=== PATIENT | female | born 1945 | race Caucasian/White ===

== ENCOUNTER 2024-06-02 20:33 | Inpatient (IN) | payer MEDICARE ==
[2024-06-02] MEDS ORDERED: Ondansetron ODT 4 MG TAB PO PRN (23:56)
[2024-06-02] MEDS ORDERED: Calcium Carbonate 500 MG ChewTAB PO PRN (23:56)
[2024-06-03 00:36] VITALS: BMI 26.4
[2024-06-03] MEDS: Dextrose 5%-Lactated Ringers 1,000 ML IV SCH (02:17)
[2024-06-03] MEDS: Enoxaparin 40 MG (0.4 mL) SYRINGE SC SCH ×2 (02:17→20:45)
[2024-06-03] MEDS ORDERED: Morphine 4 MG/ML VIAL SLOW IVP PRN (04:42)
[2024-06-03 05:00] LABS: #Basophils 0.03 10x3/uL (0.0-0.2); %Basophils 0.5 % (0.0-1.0); %Eosinophils 0.9 % (0.0-10.0); %Lymphocytes 6.5 % (21.0-51.0); %Monocytes 11.3 % (0.0-10.0); %Neutrophils 80.3 % (42.0-75.0); Hematocrit 28.2 % (36.0-47.0); Hemoglobin 9.5 g/dL (12.0-16.0); Mean Corpuscular HGB CONC 33.7 g/dL (32.0-36.0); Mean Corpuscular Hemoglobin 31.3 pg (27.0-31.0); Mean Corpuscular Volume 92.8 fL (78.0-98.0); Platelet Count 147 10x3/uL (130-400); Red Blood Cell (RBC) Count 3.04 mill/uL (4.20-5.40)
[2024-06-03 05:25] LABS: ALT (SGPT) 23 U/L (8-55); AST (SGOT) 74 U/L (5-34); Albumin 2.8 g/dL (3.4-4.8); Alkaline Phosphatase 565 U/L (40-110); BUN (Urea Nitrogen) 17 mg/dL (9.8-20.1); Bilirubin, Total 1.7 mg/dL (0.2-1.2); Calc. Creatinine Clearance 73 mL/min (70-130); Calcium 8.2 mg/dL (7.8-10.44); Carbon Dioxide 19 mmol/L (23-31); Estimated GFR 85; Glucose 93 mg/dL (83-110); Protein, Total 5.8 g/dL (5.8-8.1)
[2024-06-03 05:45] LABS: Anion Gap 18 mmol/L (10-20); Chloride 100 mmol/L (98-107); Potassium 3.6 mmol/L (3.5-5.1); Sodium 131 mmol/L (136-145)
[2024-06-03] MEDS: Pantoprazole 40 MG VIAL IVP SCH (08:55)
[2024-06-03] MEDS ORDERED: Pantoprazole 40 MG VIAL IVP SCH (09:00)
[2024-06-03 16:01] VITALS: BMI 26.4
[2024-06-04 05:19] LABS: #Basophils Less than 0.03 10x3/uL (0.0-0.2); %Basophils 0.4 % (0.0-1.0); %Eosinophils 1.1 % (0.0-10.0); %Lymphocytes 7.3 % (21.0-51.0); %Monocytes 11.6 % (0.0-10.0); %Neutrophils 79.2 % (42.0-75.0); Hematocrit 29.6 % (36.0-47.0); Hemoglobin 9.8 g/dL (12.0-16.0); Mean Corpuscular HGB CONC 33.1 g/dL (32.0-36.0); Mean Corpuscular Hemoglobin 30.8 pg (27.0-31.0); Mean Corpuscular Volume 93.1 fL (78.0-98.0); Mean Platelet Volume 10.2 fL (7.4-10.4); Platelet Count 144 10x3/uL (130-400); RBC Distribution Width 14.1 % (11.5-14.5); Red Blood Cell (RBC) Count 3.18 mill/uL (4.20-5.40)
[2024-06-04 05:45] LABS: ALT (SGPT) 26 U/L (8-55); AST (SGOT) 86 U/L (5-34); Albumin 2.6 g/dL (3.4-4.8); Alkaline Phosphatase 551 U/L (40-110); Anion Gap 14 mmol/L (10-20); BUN (Urea Nitrogen) 13 mg/dL (9.8-20.1); Bilirubin, Total 1.4 mg/dL (0.2-1.2); Calc. Creatinine Clearance 78 mL/min (70-130); Calcium 8.2 mg/dL (7.8-10.44); Carbon Dioxide 18 mmol/L (23-31); Chloride 100 mmol/L (98-107); Estimated GFR 89; Globulin 2.9 g/dL (2.4-3.5); Glucose 108 mg/dL (83-110); Potassium 3.4 mmol/L (3.5-5.1); Protein, Total 5.5 g/dL (5.8-8.1); Sodium 129 mmol/L (136-145)
[2024-06-04] MEDS: Potassium Chloride 20 MEQ in Premix 1 BAG IVPB SCH (09:01)
[2024-06-05 05:53] LABS: #Basophils 0.04 10x3/uL (0.0-0.2); %Basophils 0.7 % (0.0-1.0); %Eosinophils 1.1 % (0.0-10.0); %Monocytes 15.6 % (0.0-10.0); Hematocrit 31.2 % (36.0-47.0); Hemoglobin 10.1 g/dL (12.0-16.0); Mean Corpuscular HGB CONC 32.4 g/dL (32.0-36.0); Mean Corpuscular Hemoglobin 30.3 pg (27.0-31.0); Mean Corpuscular Volume 93.7 fL (78.0-98.0); Platelet Count 130 10x3/uL (130-400); RBC Distribution Width 14.3 % (11.5-14.5); Red Blood Cell (RBC) Count 3.33 mill/uL (4.20-5.40)
[2024-06-05 06:11] LABS: ALT (SGPT) 36 U/L (8-55); AST (SGOT) 124 U/L (5-34); Albumin 2.5 g/dL (3.4-4.8); Alkaline Phosphatase 594 U/L (40-110); Anion Gap 18 mmol/L (10-20); BUN (Urea Nitrogen) 11 mg/dL (9.8-20.1); Bilirubin, Total 1.6 mg/dL (0.2-1.2); Calc. Creatinine Clearance 85 mL/min (70-130); Calcium 8.4 mg/dL (7.8-10.44); Carbon Dioxide 16 mmol/L (23-31); Chloride 106 mmol/L (98-107); Estimated GFR 91; Glucose 96 mg/dL (83-110); Potassium 3.8 mmol/L (3.5-5.1); Protein, Total 5.5 g/dL (5.8-8.1); Sodium 136 mmol/L (136-145)
[2024-06-05 21:28] VITALS: BP 153/72; TEMP 98.1
== END 2024-06-05 22:15 | disposition home health service (06) | DRG 54 ==
LOC: MSONC 23:34 → OBSVTOIN 23:56
PROVIDERS: ADMIT Student in an Organized Health Care Education/Training Program; ATTEND Student in an Organized Health Care Education/Training Program
DX: C79.31 Secondary malignant neoplasm of brain (principal); E43 Unspecified severe protein-calorie malnutrition; E87.20 Acidosis, unspecified; E87.1 Hypo-osmolality and hyponatremia; E87.6 Hypokalemia; E16.2 Hypoglycemia, unspecified; Z66 Do not resuscitate; C80.1 Malignant (primary) neoplasm, unspecified; R13.10 Dysphagia, unspecified; E80.6 Other disorders of bilirubin metabolism; Z88.5 Allergy status to narcotic agent; Z88.8 Allergy status to other drugs, medicaments and biological substances; Z91.041 Radiographic dye allergy status; Z91.018 Allergy to other foods; Z90.49 Acquired absence of other specified parts of digestive tract; Z68.26 Body mass index [BMI] 26.0-26.9, adult; Z51.5 Encounter for palliative care
CPT/HCPCS: 36415; 70551; 74230; 80053; 82378; 85025; 86304; J1650; J2470; J3480